=== PATIENT | female | born 1930 | race Caucasian/White ===

== ENCOUNTER 2017-02-21 14:17 | Inpatient (IN) | payer MEDICARE ==
--- NOTE | ~2017-02-21 | EKG ---
PATIENT: MINERVA OCONNOR UNIT #: [id number] Ventricular Rate: 133 BPM Atrial Rate: 122 BPM QRS Duration: 80 ms Q-T Interval: 346 ms QTC Calculation(Bezet): 514 ms Calculated R [place]: 102 degrees Calculated T [place]: 83 degrees Diagnosis Line: Atrial fibrillation with rapid ventricular Diagnosis Line: response Diagnosis Line: Nonspecific T wave abnormality , probably Diagnosis Line: digitalis effect Diagnosis Line: Abnormal ECG Diagnosis Line: No previous ECGs available Diagnosis Line: Confirmed by RICKEY WARD MD ([id number]) on Diagnosis Line: 02/22/2017 7:36:30 AM INTERPRETING MD: ROBY
--- NOTE | ~2017-02-21 | DS ---
Unit #: [id number] #: [id number] Patient: MINERVA OCONNOR [id number] [facility] [address] [facility] [place], [place] [address] [id number] MR#: [id number] NAME: MINERVA OCONNOR. ROOM: 565 Age: 86 Sex: F Admission Date: 02/21/2017 : 1930 Discharge Date: 02/23/2017 Attending Physician: Jyoti Cardoso M.D. Primary Care Physician: Chris De La Fuente M.D. DISCHARGE SUMMARY DISCHARGE DIAGNOSES 1. Atrial fibrillation with rapid ventricular response. 2. Acute systolic congestive heart failure with left ventricular ejection fraction of 20% to 25%. 3. Severe mitral regurgitation and tricuspid regurgitation. 4. Xkjghjcm-gq-raaysx aortic stenosis. 5. Two-dimensional echocardiogram shows a left ventricular ejection fraction of 20% to 25% with severely dilated left atrium, moderately enlarged right atrial size, and tgejbcpl-ni-sbyufb aortic stenosis is present. Severe mitral regurgitation and tricuspid regurgitation with a right ventricular systolic pressure of 56 millimeters of mercury. No evidence of pericardial effusion. HOSPITAL COURSE The patient is an 86-year-old active patient who was seen by Dr. Henley in his office. In the office the patient was found to have atrial fibrillation and was seen by Dr. Cardoso in the [facility] office. The patient reports that she has never had a myocardial infarction in the past. The patient does report that she is very active but has been having some shortness of breath. She was admitted for control of her atrial fibrillation. Two-D echo shows severe cardiomyopathy with an LVEF of approximately 25% with severe mitral regurgitation, tricuspid regurgitation and rnuervsj-xq-raqqdk aortic stenosis. The patient was initially started on aspirin, Metoprolol, Lasix and Lovenox. Eventually the patient was changed over to Eliquis, lisinopril and sotalol. The patient states that she feels much better. Dr. Cardoso has seen the patient and determined the patient is stable for discharge. It was decided that the patient would go home on Coumadin as opposed to Eliquis secondary to cost. DISCHARGE/FOLLOWUP INSTRUCTIONS 1. The patient will be discharged home. 2. The patient is to follow up with Dr. Cardoso on April 10, at 11:15. 3. The patient is to follow up with primary care provider in 1 week. 4. Healthy heart diet. 5. Activity as tolerated. DISCHARGE MEDICATIONS 1. Paxil 30 mg p.o. in the morning. 2. Trusopt 1 drop both eyes daily. Unit #: [id number] #: [id number] Patient: MINERVA OCONNOR 3. Sotalol 40 mg p.o. in the morning and 20 mg at night. 4. Lasix 20 mg p.o. b.i.d. 5. Lisinopril 2.5 mg p.o. daily. 6. Aspirin 81 mg p.o. daily. 7. Meloxicam 50 mg p.o. daily p.r.n. 8. Coumadin 2.5 mg p.o., start on 02/24. Dictated by... Padmini Rhoades A.P.R.N. for Jyoti Cardoso M.D. AM/kian TD: 02/23/2017 16:17 JOB #: [id number] DISCHARGE SUMMARY Page 1 of 1 X Padmini Rhoades APRN X DISCHARGE SUMMARY
--- NOTE | ~2017-02-21 | EKG ---
PATIENT: MINERVA OCONNOR UNIT #: [id number] Ventricular Rate: 117 BPM Atrial Rate: 147 BPM QRS Duration: 82 ms Q-T Interval: 362 ms QTC Calculation(Bezet): 504 ms Calculated R [place]: 120 degrees Calculated T [place]: 58 degrees Diagnosis Line: Atrial fibrillation with rapid ventricular Diagnosis Line: response Diagnosis Line: RSR' or QR pattern in V1 suggests right Diagnosis Line: ventricular conduction delay Diagnosis Line: Nonspecific T wave abnormality , probably Diagnosis Line: digitalis effect Diagnosis Line: Abnormal ECG Diagnosis Line: When compared with ECG of 22-FEB-2017 05:48, Diagnosis Line: Inverted T waves have replaced nonspecific T wave Diagnosis Line: abnormality in Inferior leads Diagnosis Line: Confirmed by RICKEY WARD MD ([id number]) on Diagnosis Line: 02/24/2017 2:50:57 PM INTERPRETING MD: ROBY
[2017-02-21] MEDS ORDERED: PAXIL30 MG PO (22:03)
[2017-02-21] MEDS ORDERED: MELOXICAM15 MG PO (22:04)
[2017-02-21] MEDS ORDERED: DORZOLAMIDE HCL10 M1 OU (22:05)
[2017-02-22 06:10] LABS: HEMATOCRIT 36.4 % (35.0-45.0); HEMOGLOBIN 11.8 gm/dL (12.0-16.0); MEAN CORPUSCULAR HEMOGLOBIN 30.1 PG (28-34); MEAN CORPUSCULAR HGB CONC 32.4 g/dL (30-36); MEAN PLATELET VOLUME 9.9 FL (6.5-11.5); RED BLOOD COUNT 3.92 X10e (3.90-5.30); WHITE BLOOD COUNT 6.3 X10e3 (4.0-10.5)
[2017-02-22 06:24] LABS: INR 1.1; PROTHROMBIN TIME (PATIENT) 11.8 SECONDS (10.0-11.7)
[2017-02-22 07:27] LABS: ALBUMIN SERUM 3.8 g/dL (3.5-5.0); BILIRUBIN,TOTAL 0.9 mg/dL (0.2-2.0); BUN/CREATININE RATIO 25.55; CALCIUM SERUM 9.4 mg/dL (8.4-10.2); CREATININE SERUM 0.9 mg/dL (0.6-1.4); GLOM FILT RATE Estimated 57.9 mL/min (>60); POTASSIUM 4.8 mmol/L (3.5-5.1); PROTEIN TOTAL SERUM 6.8 g/dL (6.0-8.3)
[2017-02-23 07:11] LABS: BUN/CREATININE RATIO 24.44; CALCIUM SERUM 9.1 mg/dL (8.4-10.2); CREATININE SERUM 0.9 mg/dL (0.6-1.4); GLOM FILT RATE Estimated 57.9 mL/min (>60)
[2017-02-23 08:18] LABS: INR 1.1
[2017-02-23] MEDS ORDERED: BETAPACE PO (13:16)
[2017-02-23] MEDS ORDERED: LASIX20 MG PO (13:17)
[2017-02-23] MEDS ORDERED: ASPIRIN81 MG PO (13:18)
[2017-02-23] MEDS ORDERED: LISINOPRIL2.5 MG PO (13:18)
[2017-02-23] MEDS ORDERED: COUMADIN2.5 MG PO (13:19)
== END 2017-02-23 13:54 | disposition home or self-care (01) | DRG 308 ==
LOC: C5C 14:17 → UNDOADMIN 16:37 → C5C 16:37
PROVIDERS: Internal Medicine Cardiovascular Disease
PROC: B24BYZZ Ultrasonography of Heart with Aorta using Other Contrast (ICD-10-PCS; principal; 2017-02-21)
DX: I48.91 Unspecified atrial fibrillation (principal); I50.21 Acute systolic (congestive) heart failure; I08.3 Combined rheumatic disorders of mitral, aortic and tricuspid valves; I42.9 Cardiomyopathy, unspecified
CPT/HCPCS: 80048; 80053; 80061; 84443; 84484; 85027; 85610; 93005; J1650; J1940

== ENCOUNTER → 2017-02-26 | Outpatient (CLI) | payer MEDICARE ==
[~2017-02-26] MED LIST: ASPIRIN81 MG PO; BETAPACE PO; COUMADIN2.5 MG PO; DORZOLAMIDE HCL10 M1 OU; LASIX20 MG PO; LISINOPRIL2.5 MG PO; MELOXICAM15 MG PO; PAXIL30 MG PO
[2017-02-26 09:02] LABS: INR 1.1; PROTHROMBIN TIME (PATIENT) 11.7 SECONDS (10.0-11.7)
== END | disposition home or self-care (01) ==
LOC: CLAB 08:24
PROVIDERS: Internal Medicine Cardiovascular Disease
DX: I48.91 Unspecified atrial fibrillation (principal); I50.21 Acute systolic (congestive) heart failure
CPT/HCPCS: 36415; 85610